=== PATIENT | male | born 1965 | race Caucasian/White ===

== ENCOUNTER 2020-09-02 08:45 | Outpatient (CLI) | payer MEDICAID, SELFPAY ==
--- NOTE | 2020-09-02 08:51 | CT_ITS ---
WS: [id number] LDCT LUNG CANCER SCREENING TECHNIQUE: Noncontrast CT of the chest with coronal and sagittal reformatted images. CLINICAL INFORMATION: NICOTINE DEPENDENCE, CIGARETTES COMPARISON: None. DLP: 58.54 mGy.cm DIvol: 1.[address] scans at [facility] use at least one of these dose optimization techniques: automat ed exposure control; mA and/or kV adjustment per patient size (includes targeted exams where dose is matched to clinical indication); or iterative reconstruction. FINDINGS: No suspicious pulmonary parenchymal opacities. No mediastinal or hilar lymphadenopathy. Mild thoracic kyphosis. Hypertrophic changes thoracic spine. CT/CT lung screening [id number] IMPRESSION: LUNG-RADS: 1-Negative FOLLOW UP: 12 Month: Continue annual screening with LDCT
== END 2020-09-02 08:46 | disposition home or self-care (01) ==
PROVIDERS: PCP Family Medicine; Visit Provider Family Medicine
DX: Z12.2 Encounter for screening for malignant neoplasm of respiratory organs (principal); F17.210 Nicotine dependence, cigarettes, uncomplicated
CPT/HCPCS: 71271

== ENCOUNTER 2022-01-13 09:36 | Outpatient (CLI) | payer MEDICAID, SELFPAY ==
--- NOTE | 2022-01-13 09:49 | CT_ITS ---
WS: [id number] LDCT LUNG CANCER SCREENING TECHNIQUE: Noncontrast CT of the chest with coronal and sagittal reformatted images. CLINICAL INFORMATION: NICOTINE DEPENDENCE,CIGARETTES COMPARISON: September 02, 2020 DLP: 86.87 mGy.cm DIvol: Mean CTDIvol: 1.60 (mGy) All CT scans at [facility] use at least one of these dose optimization techniques: automat ed exposure control; mA and/or kV adjustment per patient size (includes targeted exams where dose is matched to clinical indication); or iterative reconstruction. FINDINGS: Both lungs are well aerated. No suspicious pulmonary parenchymal opacities. Tiny 1 to 2 mm nodule LEF T upper lobe. Chronic emphysematous changes. Normal caliber thoracic aorta. No mediastinal or hilar l ymphadenopathy. Adrenal glands are normal. Calcified granulomas RIGHT lower lobe. CT/CT lung screening [id number] IMPRESSION: LUNG-RADS: 2-Benign Appearance or Behavior FOLLOW UP: 12 Month: Continue annual screening with LDCT
== END 2022-01-13 09:37 | disposition home or self-care (01) ==
LOC: RAD 09:38
PROVIDERS: PCP Family Medicine; Visit Provider Family Medicine
DX: Z12.2 Encounter for screening for malignant neoplasm of respiratory organs (principal); F17.210 Nicotine dependence, cigarettes, uncomplicated
CPT/HCPCS: 71271

== ENCOUNTER 2023-10-08 13:23 | Emergency (ER) | payer MEDICAID, SELFPAY ==
--- NOTE | 2023-10-08 13:34 | CTR_ITS ---
PROCEDURE INFORMATION: Exam: CT Abdomen And Pelvis With Contrast Exam date and time: 10/08/2023 2:25 PM Age: 58 years old Clinical indication: Abdominal pain; Generalized; Additional info: Abd pain TECHNIQUE: Imaging protocol: Computed tomography of the abdomen and pelvis with contrast. Radiation optimization: All CT scans at this facility use at least one of these dose optimization techniques: automated exposure control; mA and/or kV adjustment per patient size (includes targeted exams where dose is matched to clinical indication); or iterative reconstruction. Contrast material: OMNI 350; Contrast volume: 100 ml; Contrast route: INTRAVENOUS (IV); COMPARISON: CT angio abd aorta runof [id number] 09/17/2018 10:37 AM RADIATION DOSE METRICS: Total DLP (mGy-cm): 1275.23 FINDINGS: Liver: No acute findings Gallbladder and bile ducts: No acute findings. Pancreas: Very mild fat stranding changes around the pancreatic head/neck. Spleen: No splenomegaly. Adrenal glands: Bilateral adreniform thickening similar to prior exam without discrete lesion. Kidneys and ureters: No stones or hydronephrosis. Stomach and bowel: No obstruction. Appendix: Normal appendix. Intraperitoneal space: No free air. No significant fluid collection. Vasculature: No abdominal aortic aneurysm. Lymph nodes: No enlarged lymph nodes. Urinary bladder: Incompletely distended. Reproductive: No acute findings. Bones/joints: No acute findings. Soft tissues: No acute findings. CT/CT abdomen pelvis w con* [id number] IMPRESSION: Possible developing pancreatitis, laboratory correlation recommended. Otherwise, no acute abdominal findings.
--- NOTE | 2023-10-08 13:36 | ECG_ITS ---
[facility] Test Date: 2023-10-08 Pat Name: Christ Mckeon Department: Room: Gender: Male Equity Research Associate: : 1965 Requested By: Reinier Pritchard Order Number: [id number] Gladis MD: Suresh Espinosa M.D. Measurements Intervals [place] Rate: 68 P: 61 NV: 157 QRS: -23 QRSD: 112 T: 46 QT: 431 QTc: 460 Interpretive Statements SINUS RHYTHM BORDERLINE LEFT AXIS DEVIATION [QRS AXIS < -20] MODERATE INTRAVENTRICULAR CONDUCTION DELAY [110+ ms QRS DURATION] Compared to ECG 10/28/2015 16:45:19 Intraventricular conduction delay now present Electronically Signed On 10-08-2023 16:16:05 PHYSICAL THERAPY AIDES TEACHER by Suresh Espinosa M.D. [id number]
--- NOTE | 2023-10-08 13:36 | ED_ITS ---
HPI - Abdominal Pain 2 General: Chief Complaint: Abdominal Pain Stated Complaint: abd pain Time Seen by Provider: 10/08/23 13:25 Source: patient and EMS Mode of arrival: EMS Limitations: no limitations History of Present Illness: 58-year-old male states he has been havi ng diffuse abdominal pain along with vomiting has been much worse with eating over the last 3 days. State of time he eats he feels like he has a band around his abdomen states the pain is epigastric but also goes to his left lower quadrant. Denies any history of abdominal surgeries denies diarrhea denies fevers. Associated Symptoms: Denies chills, diarrhea, fever(s), nausea and vomiting Review of Systems 2 Const: Denies: fever(s), chills, body aches or change in appetite ENMT: Denies: throat pain or dental pain Card: Denies: chest pain Resp: Denies: dyspnea GI: Reports: abdominal pain; Denies: nausea, vomiting or diarrhea Musc: Denies: neck pain or back pain Skin/Breast: Denies: rash Neuro: Denies: headache(s) PFSH ED 2 PFSH: Social History Smoking and tobacco/nicotine status: current every day tobacco/nicotine user Physical Exam 2 Const: COMMON NORMALS: no acute distress, patient oriented x3 and healthy appearing HENMT: COMMON NORMALS: normocephalic and atraumatic HEAD & SCALP: n ormocephalic and atraumatic Eye: COMMON NORMALS: Equal, round and reactive pupils present and EOMs intact bilaterally PUPIL: Yes Equal, round and reactive pupils present Neck/C-Spine: COMMON NORMALS: full ROM and supple Chest: COMMONS NORMALS: normal inspection of the chest Resp: COMMON NORMALS: normal respiratory effort, No retractions, No use of accessory muscles and clear to auscultation bilaterally AUSCULTATION: clear to auscultation bilaterally Cardio: COMMON NORMALS: regular rate, regular rhythm and No murmurs present (Cardio) RATE: regular rate RHYTHM: regular rhythm GI: COMMON NORMALS: Normal to inspection, nondistended, normoactive bowel sounds present, Soft to palpation and no masses PALPATION: Yes Soft to palpation OTHER: diffuse tenderness Extremity: COMMON NORMALS: normal to inspection and full ROM Neuro: COMMON NORMALS: patient oriented x3, moves all extremities and no focal motor deficits Psych: COMMON NORMALS: mental status grossly normal, Normal thought process present and cooperative THOUGHT PROCESS: Normal thought process present Skin: COMMON NORMALS: no rashes or lesions noted and no wounds GENERAL SKIN EXAM: no rashes or lesions noted Course 2 Vital Signs: Vital signs: Vital Signs Temperature 98.4 F 10/08/23 13:37 Pulse Rate 79 10/08/23 13:47 Respiratory Rate 16 10/08/23 14:20 Blood Pressure 148/102 10/08/23 13:47 Pulse Oximetry 96 10/08/23 13:47 MDM - Abdominal Pain Medical Decision Making Patient presents for abdominal pain labs CT consistent likely a mild pancreatitis with no signs of cholecystitis his liver enzymes bilirubin are normal lipase is mildly elevated his pains resolved here he had no vomiting here did offer him admission he like to try treatment at home first he is to do a liquid diet we will prescribe him pain meds nausea medicine he is to follow-up with general surgery return if worsening he understands agrees to plan Medical Records I reviewed the patient's medical records. Lab Data I reviewed the patient's lab results. 10/08/23 13:47 10/08/23 13:47 Labs/Radiology: Radiology Impressions Abdomen/Pelvis CT 10/08/23 13:34 IMPRESSION: Possible developing pancreatitis, laboratory correlation recommended. Otherwise, no acute abdominal findings. Laboratory Results WBC 11.88 10^3/uL (3.29-11.43) H 10/08/23 13:47 RBC 5.08 10^6/uL (3.85-5.65) 10/08/23 13:47 Hgb 15.90 g/dL (11.27-16.99) 10/08/23 13:47 Hct 46.5 % (37-53) 10/08/23 13:47 MCV 91.5 fl (82-101) 10/08/23 13:47 MCH 31.3 pg (27-33) 10/08/23 13:47 MCHC 34.2 g/dL (30-55) 10/08/23 13:47 RDW 12.6 % (12.1-15.1) 10/08/23 13:47 Plt Count 291 10^3/cmm (157-399) 10/08/23 13:47 MPV 10.1 fL (7.4-10.4) 10/08/23 13:47 Neut % (Auto) 83.0 % 10/08/23 13:47 Lymph % (Auto) 12.1 % 10/08/23 13:47 Ogle % (Auto) 3.5 % 10/08/23 13:47 Eos % (Auto) 0.6 % 10/08/23 13:47 Baso % (Auto) 0.5 % 10/08/23 13:47 Neut # (Auto) 9.86 10^3/uL (1.8-7.7) H 10/08/23 13:47 Lymph # (Auto) 1.4 10^3/uL (0.8-4.8) 10/08/23 13:47 Ogle # (Auto) 0.4 10^3/uL (0.2-0.9) 10/08/23 13:47 Eos # (Auto) 0.1 10^3/uL (0.0-0.8) 10/08/23 13:47 Baso # (Auto) 0.1 10^3/uL (0.0-0.1) 10/08/23 13:47 Nucleated RBC % (auto) 0 % 10/08/23 13:47 Nucleated RBCs # 0.0 /100WBC 10/08/23 13:47 Sodium 131 mmol/L (136-145) L 10/08/23 13:47 Potassium 3.8 mmol/L (3.5-5.1) 10/08/23 13:47 Chloride 97 mmol/L (98-107) L 10/08/23 13:47 Carbon Dioxide 23 mmol/L (22-29) 10/08/23 13:47 Anion Gap 14.8 (5-19) 10/08/23 13:47 BUN 13 mg/dL (6-20) 10/08/23 13:47 Creatinine 0.7 mg/dL (0.7-1.2) 10/08/23 13:47 GFR Calculation 115.4 mL/min (90-130) 10/08/23 13:47 Glucose 202 mg/dL (65-115) H 10/08/23 13:47 Calculated Osmolality 278 mOsm/kg (285-295) L 10/08/23 13:47 Calcium 9.4 mg/dL (8.5-10.5) 10/08/23 13:47 Total Bilirubin 0.3 mg/dL (0.15-1.2) 10/08/23 13:47 AST 14 U/L (0-40) 10/08/23 13:47 ALT 14 U/L (0-41) 10/08/23 13:47 Alkaline Phosphatase 108 U/L (40-130) 10/08/23 13:47 Total Protein 7.6 g/dL (6.6-8.7) 10/08/23 13:47 Albumin 4.3 g/dL (3.5-5.2) 10/08/23 13:47 Globulin 3.3 g/dL (1.3-4.6) 10/08/23 13:47 Lipase 116 U/L (13-60) H 10/08/23 13:47 All radiology interpretation(s) finalized by discharge Discharge Plan Discharge Patient Disposition: Home Clinical Impression: Pancreatitis Condition: Stable Prescriptions: New hydrocodone-acetaminophen 5-325 mg tablet 1 tab PO Q6H PRN (Reason: pain) Qty: 14 0RF ondansetron 4 mg tablet,disintegrating 4 mg PO Q6H PRN (Reason: nausea and vomiting) Qty: 14 0RF No Action Zyrtec 10 mg Tablet 10 mg PO BEDTIME Aspir-81 81 mg Tablet,Delayed Release (Dr/Ec) 81 mg PO DAILY hydrochlorothiazide 25 mg Tablet 25 mg PO QAM Ventolin HFA 90 mcg/actuation Hfa Aerosol Inhaler 1 - 2 puff INHALATION QID lisinopril 40 mg Tablet 40 mg PO QAM Flonase 50 mcg/actuation [place],Suspension 2 spray INTRANASAL DAILY Rx Instructions: administer into each nostril metformin 500 mg Tablet Extended Release 24 Hr 500 mg PO QAM Lexapro 20 mg Tablet 20 mg PO QAM Keppra 1,000 mg Tablet 1,000 mg PO BID Anoro Ellipta 62.5-25 mcg/actuation Blister With Device 1 inh INHALATION DAILY Trulicity 3 mg/0.5 mL Pen Injector 3 mg SUBCUT Q7D Rx Instructions: on sat omeprazole 40 mg Capsule,Delayed Release(Dr/Ec) 40 mg PO QAM Crestor 40 mg Tablet 40 mg PO DAILY Discharge Orders: Discharge ED (Routine); Ordered 10/08/23 Ordered By: Reinier Pritchard Referrals: Jose Schreiber DO [Physician] - 1-3 days Markus So MD [Primary Care Provider] - Discharge Diet: Advance as tolerated and Clear Liquid Discharge Activity: Resume usual activity Patient Instructions: Pancreatitis (ED), Opioid Safety Coding Level of Care Code ED Glass Ribbon Machine Operator Assistant for Emerita Alfred
[2023-10-08 13:37] VITALS: PULSE 79; RESP 17; TEMP 36.9; O2SAT 96; BMI 40.6
[2023-10-08 13:47] VITALS: BP 148/102; PULSE 79; RESP 17; O2SAT 96
[2023-10-08 13:53] LABS: Basophils # 0.1 10^3/uL (0.0-0.1); Basophils % 0.5 %; Eosinophils # 0.1 10^3/uL (0.0-0.8); Eosinophils % 0.6 %; Hematocrit 46.5 % (37-53); Lymphocytes # 1.4 10^3/uL (0.8-4.8); Lymphocytes % 12.1 %; Mean Corpuscular HGB Conc 34.2 g/dL (30-55); Mean Corpuscular Hemoglobin 31.3 pg (27-33); Mean Corpuscular Volume 91.5 fl (82-101); Mean Platelet Volume 10.1 fL (7.4-10.4); Monocytes # 0.4 10^3/uL (0.2-0.9); Monocytes % 3.5 %; Neutrophils # 9.86 10^3/uL (1.8-7.7); Nucleated Red Blood Cells % 0 %; Platelet Count 291 10^3/cmm (157-399); Red Blood Count 5.08 10^6/uL (3.85-5.65); Red Cell Distribution Width 12.6 % (12.1-15.1); White Blood Count 11.88 10^3/uL (3.29-11.43)
[2023-10-08 14:16] LABS: Alanine Aminotransferase 14 U/L (0-41); Albumin Level 4.3 g/dL (3.5-5.2); Alkaline Phosphatase 108 U/L (40-130); Anion Gap 14.8 (5-19); Aspartate Amino Transferase 14 U/L (0-40); Blood Urea Nitrogen 13 mg/dL (6-20); Calcium 9.4 mg/dL (8.5-10.5); Carbon Dioxide 23 mmol/L (22-29); Chloride 97 mmol/L (98-107); Creatinine Clr Calc Pharmacy 162.3073; Globulin 3.3 g/dL (1.3-4.6); Glomerular Filtration Rate 115.4 mL/min (90-130); Glucose 202 mg/dL (65-115); Lipase 116 U/L (13-60); Osmolality Calculated 278 mOsm/kg (285-295); Potassium 3.8 mmol/L (3.5-5.1); Sodium 131 mmol/L (136-145); Total Bilirubin 0.3 mg/dL (0.15-1.2); Total Protein 7.6 g/dL (6.6-8.7)
[2023-10-08 14:20] VITALS: RESP 16
[2023-10-08] MEDS: morphine 4 mg/mL SDV 1 mL IVP (14:20)
[2023-10-08] MEDS: ondansetron 2 mg/ML SDV 2 mL 4 MG IVP (14:20)
[2023-10-08] MEDS: iohexol 350 mg/mL 500 mL Btl (per mL) IV (14:28)
--- NOTE | 2023-10-08 14:46 | PC.PHAR ---
Addendum entered by Lizzette Isbell 10/08/23 14:50: *carmella Original Note: pt states he takes care of his own medications-pt states he is still taking cretor 40mg daily [facility] states last filled 10/01/22 30d/s pt states he had a build up-pt states not taking keppra 500mg bid last filled february 07 2023 or levemir flexpen 10 units daily last filled apr 2023-
[2023-10-08 16:05] VITALS: BP 146/82; PULSE 71; O2SAT 93
--- NOTE | 2023-10-09 08:17 | DCPLANNER ---
Message sent to Gen Surg for a follow up
== END 2023-10-08 16:06 | disposition home or self-care (01) ==
PROVIDERS: Emergency Provider Emergency Medicine; PCP Family Medicine
DX: K85.90 Acute pancreatitis without necrosis or infection, unspecified (principal); Z79.82 Long term (current) use of aspirin; Z79.85 Long-term (current) use of injectable non-insulin antidiabetic drugs; Z79.84 Long term (current) use of oral hypoglycemic drugs; Z72.0 Tobacco use
CPT/HCPCS: 36415; 74177; 80053; 83690; 85025; 93005; 96374; 96375; 99285; J2270; J2405; Q9967

== ENCOUNTER → 2023-10-12 09:34 | Outpatient (BNVA) | payer MEDICAID, SELFPAY | PROVIDERS: PCP Family Medicine; Referring Provider Emergency Medicine; Visit Provider Surgery | DX: K85.90 Acute pancreatitis without necrosis or infection, unspecified (principal); K92.2 Gastrointestinal hemorrhage, unspecified; R10.13 Epigastric pain; Z86.010 Personal history of colon polyps | CPT/HCPCS: 99204 ==

== ENCOUNTER 2023-10-24 06:02 | Outpatient (CLI) | payer MEDICAID, SELFPAY ==
--- NOTE | 2023-10-24 06:15 | US_ITS ---
WS: [id number] Gallbladder ultrasound, Clinical Data: epigastric pain Comparison: None. Findings: The gallbladder shows no sludge or stone. The wall measures 0.3 cm with no pericholecystic fluid. The common bile duct is 0.5 cm and there are no intrahepatic ductal abnormalities. Liver shows no cysts, masses or dilated intrahepatic ducts. The liver parenchyma shows a fatty echote xture. The liver measures 16.6 cm. The portal vein shows normal flow and measures 0.9 cm. The pancreas is not obscured by overlying bowel gas and no cyst, pseudocyst, or evidence of pancreat itis is noted. Right kidney measures 12.0 cm and no cyst, masses or hydronephrosis can be seen. The aorta and inferior vena cava show no vascular abnormalities. Impression: Negative gallbladder.
== END 2023-10-24 06:03 | disposition home or self-care (01) ==
LOC: RAD 06:02
PROVIDERS: PCP Family Medicine; Visit Provider Surgery
DX: R10.13 Epigastric pain (principal)
CPT/HCPCS: 76705

== ENCOUNTER 2023-11-01 15:03 | Emergency (ER) | payer MEDICAID, SELFPAY ==
[2023-11-01 15:08] VITALS: BMI 37.7
[2023-11-01 15:10] VITALS: BP 125/84; PULSE 104; RESP 16; TEMP 36.9; O2SAT 94
--- NOTE | 2023-11-01 15:24 | ECG_ITS ---
[facility] Test Date: 2023-11-01 Pat Name: Christ Mckeon Department: Room: Gender: Male Theatrical Performer: : 1965 Requested By: Reinier Pritchard Order Number: [id number] Gladis MD: Suresh Espinosa M.D. Measurements Intervals [place] Rate: 98 P: 61 PA: 153 QRS: -44 QRSD: 101 T: 52 QT: 353 QTc: 452 Interpretive Statements SINUS RHYTHM LEFT AXIS DEVIATION [QRS AXIS < -30] PATTERN CONSISTENT WITH PULMONARY DISEASE Compared to ECG 10/08/2023 14:45:01 Intraventricular conduction delay no longer present Electronically Signed On 11-01-2023 16:13:09 CDT by Suresh Espinosa M.D. [id number]
--- NOTE | 2023-11-01 15:24 | XR_ITS ---
WS: [id number] Exam: XR chest 1V portable [id number] Date/Time of Exam: 11/01/2023 3:24 PM Reason For Exam: sob Comparison 10/28/2015. Lungs are clear and fully inflated. Normal cardiomediastinal silhouette. Bony structures are intact. No pleural effusions. Small battery pack seen along the LEFT heart. IMPRESSION: 1. Negative chest. No change.
--- NOTE | 2023-11-01 15:27 | W.ED.PSYCHS ---
HPI - Psych General: Chief Complaint: Psychiatric Symptoms Stated Complaint: Fit for Confinement exam Time Seen by Provider: 11/01/23 15:06 Source: patient and police Mode of arrival: other Limitations: no limitations History of Present Illness: 58-year-old male who is here with police patient was transferred to [facility] residential today he is brought here for fit for confinement. Patient states he had some mild dyspnea and he is in no distress here. He denies any cough. He does have a history of diabetes he is not taking his meds he states for 3 to 4 days Review of Systems Const: Denies: fever(s), chills, body aches or change in appetite Eyes: Denies: blurry vision or eye discomfort ENMT: Denies: throat pain or dental pain Card: Denies: chest pain Resp: Reports: dyspnea GI: Denies: abdominal pain, nausea, vomiting or diarrhea Musc: Denies: neck pain or back pain Skin/Breast: Denies: rash Neuro: Denies: headache(s) PFS ED PFSH: Surgical History (Updated 10/12/23 @ 11:21 by Jose Schreiber DO) Hx of hand surgery right hand/pinky Hx of colonoscopy with polypectomy 3 yrs Family History Mother Cancer lung cancer Social History Smoking and tobacco/nicotine status: current every day tobacco/nicotine user Alcohol intake: never Physical Exam Const: COMMON NORMALS: no acute distress, patient oriented x3 and healthy appearing HENMT: COMMON NORMALS: normocephalic and atraumatic HEAD & SCALP: normocephalic and atraumatic Neck/C-Spine: COMMON NORMALS: full ROM and supple Chest: COMMONS NORMALS: normal inspection of the chest and normal palpation of entire chest wall Resp: COMMON NORMALS: normal respiratory effort, No retractions, No use of accessory muscles and clear to auscultation bilaterally AUSCULTATION: clear to auscultation bilaterally Cardio: COMMON NORMALS: regular rate, regular rhythm and No murmurs present (Cardio) RATE: regular rate RHYTHM: regular rhythm GI: COMMON NORMALS: Normal to inspection, nondistended, normoactive bowel sounds present, Soft to palpation, non-tender and no masses PALPATION: Yes Soft to palpation Extremity: COMMON NORMALS: normal to inspection and full ROM Neuro: COMMON NORMALS: patient oriented x3, moves all extremities and no focal motor deficits Psych: COMMON NORMALS: mental status grossly normal, Normal thought process present and cooperative THOUGHT PROCESS: Normal thought process present Skin: COMMON NORMALS: no rashes or lesions noted and no wounds GENERAL SKIN EXAM: no rashes or lesions noted Course Vital Signs: Vital signs: Vital Signs Temperature 98.4 F 11/01/23 15:10 Pulse Rate 104 H 11/01/23 15:10 Respiratory Rate 16 11/01/23 15:10 Blood Pressure 125/84 11/01/23 15:10 Pulse Oximetry 94 11/01/23 15:10 Oxygen Delivery Me thod Room Air 11/01/23 15:10 MDM - Psych Medical Decision Making Patient presents here for medical clearance for incarceration x-ray EKG here normal his glucose is in good range vitals here are normal we will refill his meds he is stable for discharge into custody. Medical Records I reviewed the patient's medical records. Lab Data Laboratory Results POC Glucose 267 mg/dL (70-110) H 11/01/23 15:57 All radiology interpretation(s) finalized by discharge EKG Data EKG 1: I personally reviewed and interpreted this EKG as follows: EKG interpretation date: 11/01/23 EKG interpretation time: 15:30 Interpretation: nsr hr [address] or t wave abnormalities qrs 101 qtc 408 Discharge Plan Discharge Patient Disposition: Home Clinical Impression: Medical clearance for incarceration Condition: Stable Prescriptions: Continued hydrochlorothiazide 25 mg Tablet 25 mg PO QAM Qty: 30 0RF lisinopril 40 mg Tablet 40 mg PO QAM Qty: 30 0RF metformin 500 mg Tablet Extended Release 24 Hr 500 mg PO QAM Qty: 30 0RF Lexapro 20 mg Tablet 20 mg PO QAM Qty: 30 0RF rosuvastatin [Crestor] 40 mg Tablet 40 mg PO DAILY Qty: 30 0RF Keppra 1,000 mg Tablet 1,000 mg PO BID Qty: 60 0RF Trulicity 3 mg/0.5 mL Pen Injector 3 mg SUBCUT Q7D Qty: 3 0RF Rx Instructions: on sat No Action pantoprazole [Protonix] 40 mg tablet,delayed release (DR/EC) 40 mg PO BID 42 Days Qty: 84 1RF cetirizine [Zyrtec] 10 mg Tablet 10 mg PO BEDTIME aspirin [Aspir-81] 81 mg Tablet,Delayed Release (Dr/Ec) 81 mg PO DAILY albuterol sulfate [Ventolin HFA] 90 mcg/actuation Hfa Aerosol Inhaler 1 - 2 puff INHALATION QID fluticasone propionate [Flonase] 50 mcg/actuation [place],Suspension 2 spray INTRANASAL DAILY Rx Instructions: administer into each nostril Anoro Ellipta 62.5-25 mcg/actuation Blister With Device 1 inh INHALATION DAILY omeprazole 40 mg Capsule,Delayed Release(Dr/Ec) 40 mg PO QAM hydrocodone-acetaminophen 5-325 mg tablet 1 tab PO Q6H PRN (Reason: pain) Qty: 14 0RF ondansetron 4 mg tablet,disintegrating 4 mg PO Q6H PRN (Reason: nausea and vomiting) Qty: 14 0RF Discharge Orders: Discharge ED (Routine); Ordered 11/01/23 Ordered By: Reinier Pritchard Referrals: Markus So MD [Primary Care Provider] - 4-7 days Discharge Diet: Advance as tolerated Discharge Activity: Resume usual activity Patient Instructions: Dyspnea (ED) Coding Level of Care Code ED Straddle Truck Operator for Emerita Alfred
[2023-11-01 16:00] LABS: Glucose Point of Care 267 mg/dL (70-110)
== END 2023-11-01 16:27 | disposition home or self-care (01) ==
PROVIDERS: Emergency Provider Emergency Medicine; PCP Family Medicine
DX: Z02.89 Encounter for other administrative examinations (principal); Z79.82 Long term (current) use of aspirin; Z79.85 Long-term (current) use of injectable non-insulin antidiabetic drugs; Z79.84 Long term (current) use of oral hypoglycemic drugs; Z72.0 Tobacco use
CPT/HCPCS: 36416; 71045; 82962; 93005; 99285

== ENCOUNTER 2024-12-19 11:44 | Outpatient (CLI) | payer MEDICAID, SELFPAY ==
--- NOTE | 2024-12-19 12:00 | CT_ITS ---
WS: [id number] LDCT LUNG CANCER SCREENING TECHNIQUE: Noncontrast CT of the chest with coronal and sagittal reformatted images. CLINICAL INFORMATION: NICOTINE DEPENDENCE,CIGARETTES COMPARISON: 2021 DLP: 167.19 mGy.cm DIvol: Mean CTDIvol: 3.80 (mGy) All CT scans at [facility] use at least one of these dose optimization techniques: automated exposure control; mA and/or kV adjustment per patient size (includes targeted exams where dose is matched to clinical indication); or iterative reconstruction. FINDINGS: Chronic emphysematous changes. A few tiny micronodules in the LEFT greater than RIGHT upper lobes. Tiny LEFT perifissural nodule. No new suspicious pulmonary parenchymal abnormalities. Calcified granuloma RIGHT lower lobe. Normal caliber thoracic aorta. Aortic calcification. No mediastinal or hilar lymphadenopathy. No axillary lymphadenopathy. Coronary calcification. Thickening of the adrenal glands bilaterally. Moderate thoracic kyphosis. Ankylosis thoracic spine. CT/CT lung screening [id number] IMPRESSION: LUNG-RADS: 2-Benign Appearance or Behavior FOLLOW UP: 12 Month: Continue annual screening with LDCT
== END 2024-12-19 11:45 | disposition home or self-care (01) ==
PROVIDERS: PCP Family Medicine; Visit Provider Family Medicine
DX: Z12.2 Encounter for screening for malignant neoplasm of respiratory organs (principal); F17.210 Nicotine dependence, cigarettes, uncomplicated; J43.8 Other emphysema; J84.10 Pulmonary fibrosis, unspecified; I70.0 Atherosclerosis of aorta; I25.10 Atherosclerotic heart disease of native coronary artery without angina pectoris; E27.8 Other specified disorders of adrenal gland; M40.294 Other kyphosis, thoracic region; M43.24 Fusion of spine, thoracic region
CPT/HCPCS: 71271